=== PATIENT | male | born 1980 | race Caucasian/White ===

== ENCOUNTER 2018-04-01 13:36 | Emergency (ER) | payer MEDICAID ==
--- NOTE | 2018-04-01 14:01 | EDPHY ---
H & P Time Seen by Provider: 04/01/18 13:49 HPI/ROS: CHIEF COMPLAINT: Right eyelid swelling History by patient HISTORY OF PRESENT ILLNESS: 37-year-old man with no significant medical history presents complaining of 5 days of right upper eyelid red and swollen. Patient states this started with a small stye on the lateral side of the eyelid but has no progressed to involve the whole eyelid and the medial corner of his eye. He has had a scant amount of clear drainage. He denies any thick discharge or eyelid sticking together in the morning. He denies any fever chills. The lid is minimally painful. He has taken ibuprofen with some relief. He has applied intermittent warm compresses but not with any regularity. He has no difficulty with his vision and has no pain with extraocular movements. He denies any known trauma to the eye. REVIEW OF SYSTEMS: As in HPI, and all other systems reviewed and are negative Smoking Status: Former smoker Physical Exam: General: Alert, well-appearing Head: Normocephalic, atraumatic EOMI Pupils: Equal round reactive to light Lids: Right upper lid swollen, +redness but not extending around or above the lid, minimally tender, no purulence or drainage, right lower lid within normal limits, left lid uninvolved Conjunctiva: Within normal limits Constitutional: Initial Vital Signs Temperature (C) 37.0 C 04/01/18 13:47 Heart Rate 89 04/01/18 13:47 Respiratory Rate 18 04/01/18 13:47 Blood Pressure 148/110 H 04/01/18 13:47 O2 Sat (%) 95 04/01/18 13:47 O2 Delivery Mode Room Air Allergies/Adverse Reactions: No Known Allergies Allergy (Unverified 04/01/18 13:46) Home Medications: Medication Instructions Recorded Cephalexin 500 mg PO BID #20 capsule 04/01/18 MDM/Departure - [facility] ED Course/Re-evaluation: 37-year-old man presents with right eyelid swelling consistent with hordeolum with mild preseptal cellulitis. Patient will be started on antibiotics. We discussed return precautions. Patient has a history of elevated blood pressure for which he has not been treated. He is referred for primary care for this. - Depart Disposition: Home, Routine, Self-Care Clinical Impression: Hordeolum externum right upper eyelid, Elevated blood pressure reading Condition: Good Instructions: Cephalexin (By mouth), Alexa (ED) Additional Instructions: You were seen by Dr. La Matias today. Continue to apply warm compresses as many times a day as possible. Take ibuprofen 600 mg up to 4 times a day as needed for pain and inflammation. Take antibiotics as prescribed. If symptoms are rapidly progressing on the antibiotics return immediately. If the symptoms do not resolve with antibiotics, then follow up with the eye doctor. Please arrange for primary care to follow up with your elevated blood pressure. Return for any worsening or new concerns. Prescriptions: Cephalexin 500 mg PO BID #20 capsule Referrals: NONE *PRIMARY CARE P,. [Primary Care Provider] - As per Instructions Alexys Anne MD [Medical Doctor] - As per Instructions
[2018-04-01 14:13] VITALS: BP 150/109
== END 2018-04-01 14:13 | disposition home or self-care (01) ==
LOC: CED 13:36
DX: H00.011 Hordeolum externum right upper eyelid (principal); R03.0 Elevated blood-pressure reading, without diagnosis of hypertension; Z87.891 Personal history of nicotine dependence